=== PATIENT | female | born 1930 | race Caucasian/White ===

== ENCOUNTER 2018-12-18 14:37 | Emergency (ER) | payer MEDICARE ==
[~2018-12-18] VITALS: Ht 162.6 cm; Wt 77.1 kg
--- OUTSIDE RECORDS SUMMARY | 2018-12-18 14:39 | XMS REPORT ---
Author Author [facility] Address Unknown Phone Unavailable Care Team Providers Care Template Storage Clerk Name Role Phone Unavailable Unavailable Problems This patient has no known problems. Allergies, Adverse Reactions, Alerts This patient has no known allergies or adverse reactions. Medications This patient has no known medications. Encounters Start Date/Time End Date/Time Encounter Type Admission Type Attending [facility] Facility Care Department Encounter ID 2017-09-02 00:00:00 2017-09-02 00:00:00 Outpatient [facility] [id number] 2017-08-26 00:00:00 2017-08-26 00:00:00 Outpatient [facility] [id number] 2017-08-26 00:00:00 2017-08-26 00:00:00 Outpatient [facility] [id number] 2017-07-27 15:14:39 2017-07-27 15:14:39 Outpatient [facility] [id number] 2017-07-25 08:55:30 2017-07-25 08:55:30 Outpatient [facility] [id number] 2017-06-20 18:00:02 2017-06-20 18:00:02 Emergency [facility] [id number] 2017-06-20 13:39:58 2017-06-20 13:39:58 Emergency [facility] [id number] 2017-06-13 00:00:00 2017-06-13 00:00:00 Outpatient [facility] [id number] 2017-06-01 00:00:00 2017-06-01 00:00:00 Outpatient [facility] [id number] 2017-05-27 15:23:51 2017-05-27 15:23:51 Outpatient [facility] [id number] 2017-05-04 00:00:00 2017-05-04 00:00:00 Outpatient [facility] [id number] 2017-04-29 00:00:00 2017-04-29 00:00:00 Outpatient [facility] [id number] 2017-03-18 09:56:43 2017-03-18 09:56:43 Outpatient [facility] [id number] 2017-03-11 10:53:53 2017-03-11 10:53:53 Outpatient [facility] [id number] 2017-03-09 10:38:56 2017-03-09 10:38:56 Outpatient [facility] [id number] 2017-02-18 13:36:52 2017-02-18 13:36:52 Outpatient [facility] [id number]
[2018-12-18] MEDS ORDERED: ALBUTEROL/IPRATROPIUM 3 ML NEB NEB ONE (17:15)
[2018-12-18] MEDS ORDERED: AZITHROMYCIN 500MG/NS 250 ML 250 ML IV ONE (17:15)
[2018-12-18] MEDS ORDERED: CEFTRIAXONE SOD 1 GM/NS 50 ML 50 ML IV ONE (17:15)
--- NOTE | 2018-12-18 18:18 | Diagnostic Imaging Report ---
EXAMINATION: CHEST 2 VIEWS INDICATION: Cough. Congestion. ^SOB, Cough ^[id number] ^1805 COMPARISON: None FINDINGS: TUBES and LINES: None. LUNGS: The lungs are hypoinflated. There is what appears to be scarring/atelectasis at the lung bases. PLEURA: Possible small pleural effusions. No pneumothorax. HEART AND MEDIASTINUM: Cardiomegaly with pulmonary vascular congestion. The patient is rotated to the right. BONES AND SOFT TISSUES: No acute osseous lesion. Soft tissues are unremarkable. UPPER ABDOMEN: No free air under the diaphragm. IMPRESSION: Cardiomegaly with pulmonary vascular congestion and possible small pleural effusions. Hypoinflated lungs with apparent scarring/atelectasis at the lung bases. Follow-up imaging is indicated to document clearing. Signed by: Dr. Nael Mcclure M.D. on 12/18/2018 6:15 PM
--- NOTE | 2018-12-18 20:00 | NUR ---
EXPLOSIVES DETONATOR AT BEDSIDE AT THIS TIME FOR BLOOD DRAW.
[2018-12-18 20:21] LABS: BASOPHILS # (AUTO) 0.1 (0.0-0.1); BASOPHILS % 0.8 % (0.0-1.0); EOSINOPHILS # (AUTO) 0.2 (0.0-0.4); EOSINOPHILS % 2.2 % (0.0-6.0); HEMATOCRIT 42.5 % (34.2-44.1); HEMOGLOBIN 14.2 g/dL (12.0-16.0); LYMPHOCYTES # (AUTO) 2.1 (1.0-3.2); LYMPHOCYTES % 26.9 % (18.0-39.1); MEAN CORPUSCULAR HEMOGLOBIN 31.1 pg (28-32); MEAN CORPUSCULAR HGB CONC 33.4 g/dL (31-35); MONOCYTES # (AUTO) 0.8 (0.2-0.8); MONOCYTES % 10.2 % (4.4-11.3); NEUTROPHILS # (AUTO) 4.6 (2.1-6.9); NEUTROPHILS % 58.7 % (38.7-80.0); PLATELET COUNT 315 x10e3/uL (140-360); RED BLOOD COUNT 4.57 x10e6/uL (3.6-5.1); RED CELL DISTRIBUTION WIDTH 12.7 % (11.7-14.4)
[2018-12-18 20:35] LABS: ALBUMIN 3.2 g/dL (3.5-5.0); ALBUMIN/GLOBULIN RATIO 0.7 (0.8-2.0); ANION GAP 14.8 mmol/L (8-16); CALCIUM 9.7 mg/dL (8.4-10.2); CREATININE, SERUM 1.03 mg/dL (0.57-1.11); POTASSIUM 3.8 mmol/L (3.5-5.1)
[2018-12-18 22:05] VITALS: BP 152/69
[2018-12-18] MEDS ORDERED: LEVAQUIN500 MG PO (22:28)
== END 2018-12-18 23:01 | disposition home or self-care (01) ==
LOC: ER 14:37
DX: R06.00 Dyspnea, unspecified (principal); I50.41 Acute combined systolic (congestive) and diastolic (congestive) heart failure; I50.1 Left ventricular failure, unspecified
CPT/HCPCS: 36415; 71046; 80053; 83880; 84484; 85025; 87040; 87400; 94640; 99284; J0456; J0696